=== PATIENT | female | born 1995 | race Caucasian/White ===

== ENCOUNTER 2019-06-02 13:06 | Emergency (ER) | payer BC, MEDICAID ==
--- NOTE | 2019-06-02 13:33 | EDM.PDOC ---
ED HPI GENERAL MEDICAL PROBLEM - General Chief Complaint: ENT Problem Stated Complaint: POSSIBLE STREP Time Seen by Provider: 06/02/19 13:20 Source of Information: Reports: Patient History Limitations: Reports: No Limitations - History of Present Illness INITIAL COMMENTS - FREE TEXT/NARRATIVE: This 23 yo female patient reports to the ED with a 2 day history of a sore throat, subjective fevers and generalized body aches. The patient reports she took Nyquil last night, but vomited after taking it. The patient has not been seen in the clinic. The patient confirmed that she is allergic to Penicillin. Onset Date: 05/31/19 Duration: Constant, Getting Worse Location: Reports: Neck Quality: Reports: Other Severity: Moderate Improves with: Reports: None Worsens with: Reports: None Context: Reports: Other Associated Symptoms: Reports: Other Treatments CREATIVE RECRUITER: Reports: Other Medication(s) Throat Pain Score (Numeric/FACES): 8 - Related Data Allergies Allergy/AdvReac Type Severity Reaction Status Date / Time Penicillins Allergy Cannot Verified 06/02/19 13:14 Remember Home Meds: Home Meds Levonorgestrel-Ethin Estradiol [Orsythia-28 Tablet] 1 tab PO DAILY 02/05/19 [ History] Past Medical History HEENT History: Reports: None Cardiovascular History: Reports: None Respiratory History: Reports: None Gastrointestinal History: Reports: None Genitourinary History: Reports: None 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 Musculoskeletal History: Reports: None Neurological History: Reports: None Psychiatric History: Reports: None Endocrine/Metabolic History: Reports: None Hematologic History: Reports: None Immunologic History: Reports: None Oncologic (Cancer) History: Reports: None Dermatologic History: Reports: None - Infectious Disease History Infectious Disease History: Reports: Chicken Pox - Past Surgical History Head Surgeries/Procedures: Reports: None Other Musculoskeletal Surgeries/Procedures:: new onset back pain with herniated disc Social & Family History - Family History Family Medical History: Noncontributory - Tobacco Use Smoking Status *Q: Current Every Day Smoker Years of Tobacco use: 10 Packs/Tins Daily: 0.5 - Caffeine Use Caffeine Use: Reports: Coffee Caffeine Use Comment: "occasionally" - Recreational Drug Use Recreational Drug Use: No - Living Situation & Occupation Living situation: Reports: with Family Occupation: Employed ED ROS ENT - Review of Systems Review Of Systems: ROS reveals no pertinent complaints other than HPI. ED EXAM, ENT - Physical Exam Exam: See Below Exam Limited By: No Limitations General Appearance: Alert, WD/WN, Moderate Distress Eye Exam: Bilateral Eye: EOMI, Normal Inspection, PERRL Ears: Normal External Exam, Normal Canal, Hearing Grossly Normal, Normal TMs Nose: Normal Inspection, Normal Mucousa, No Blood Mouth/Throat: Normal Inspection, Normal Gums, Normal Lips, Normal Teeth, Tonsillar Erythema, Tonsillar Exudates, Tonsillar Swelling Head: Atraumatic, Normocephalic Neck: Normal Inspection, Supple, Non-Tender, Full Range of Motion Respiratory/Chest: No Respiratory Distress, Lungs Clear, Normal Breath Sounds, No Accessory Muscle Use, Chest Non-Tender Cardiovascular: Normal Peripheral Pulses, Regular Rate, Rhythm, No Edema, No Gallop, No JVD, No Murmur, No Rub GI/Abdominal: Normal Bowel Sounds, Soft, Non-Tender, No Organomegaly, No Distention, No Abnormal Bruit, No Mass (Female) Exam: Deferred Rectal (Female) Exam: Deferred Back: Normal Inspection, Full Range of Motion Extremities: Normal Inspection, Normal Range of Motion, Non-Tender, No Pedal Edema, Normal Capillary Refill Neurological: Alert, Oriented, CN II-XII Intact, Normal Cognition, Normal Gait, Normal Reflexes, No Motor/Sensory Deficits Psychiatric: Normal Affect, Normal Mood Skin: Warm, Dry, Intact, Normal Color, No Rash Lymphatic: No Adenopathy Course - Vital Signs Last Recorded V/S: Last Vital Signs Temp 36.6 C 06/02/19 13:11 Pulse 96 06/02/19 13:11 Resp 18 06/02/19 13:11 BP 127/83 06/02/19 13:11 Pulse Ox 100 06/02/19 13:11 - Orders/Labs/Meds Orders: Active Orders 24 hr Category Date Time Status CULTURE STREP A CONFIRMATION [] Stat Lab 06/02/19 13:28 Results STREP SCRN A RAPID W CULT CONF [] Stat Lab 06/02/19 13:26 Ordered Departure - Departure Time of Disposition: 13:50 Disposition: Home, Self-Care 01 Condition: Fair Clinical Impression: URI (upper respiratory infection) Qualifiers: URI type: unspecified URI Qualified Code(s): J06.9 - Acute upper respiratory infection, unspecified - Discharge Information *PRESCRIPTION DRUG MONITORING PROGRAM REVIEWED*: Not Applicable *COPY OF PRESCRIPTION DRUG MONITORING REPORT IN PATIENT MITESH: Not Applicable Instructions: Upper Respiratory Infection, Adult, [id number] Forms: ED Department Discharge Care Plan Goals: The patient was advised of the examination and lab results during the visit. The patient was discharged with a script for Azithromycin (250 mg) #6 to take 2 by mouth on day 1 and 1 by mouth on days 2-5. The patient should be encouraged to increase her oral fluid intake over the next 48 hours. The patient may use [id number] medications for temporary symptom relief. If the patient has any additional symptoms or concerns, the patient should either return to the emergency department or follow-up with her primary care facility. - My Orders Last 24 Hours: My Active Orders 06/02/19 13:26 STREP SCRN A RAPID W CULT CONF [RM] Stat 06/02/19 13:28 CULTURE STREP A CONFIRMATION [RM] Stat - Assessment/Plan Last 24 Hours: My Active Orders 06/02/19 13:26 STREP SCRN A RAPID W CULT CONF [RM] Stat 06/02/19 13:28 CULTURE STREP A CONFIRMATION [RM] Stat
== END 2019-06-02 13:59 | disposition home or self-care (01) ==
LOC: DL.ED 13:06
DX: J06.9 Acute upper respiratory infection, unspecified (principal); F17.210 Nicotine dependence, cigarettes, uncomplicated; Z88.0 Allergy status to penicillin
CPT/HCPCS: 87081; 87430; 99283

== ENCOUNTER 2019-08-08 17:32 | Emergency (ER) | payer MEDICAID ==
[2019-08-08] MEDS ORDERED: Ibuprofen 800 MG Tab PO ONE (18:10)
[2019-08-08] MEDS ORDERED: Azithromycin 250 MG Tab PO ONE (18:10)
--- NOTE | 2019-08-08 18:12 | EDM.PDOC ---
Scribed by Cara Roberts 08/08/19 [id number] for Ray Hawkins MD ED HPI GENERAL MEDICAL PROBLEM - General Chief Complaint: ENT Problem Stated Complaint: SORE THROAT Time Seen by Provider: 08/08/19 17:39 Source of Information: Reports: Patient, RN, RN Notes Reviewed History Limitations: Reports: No Limitations - History of Present Illness INITIAL COMMENTS - FREE TEXT/NARRATIVE: Patient presents to ER stating she has had a cold for 2 weeks. The sore throat started last night. Admits to pain and itching deep in the ears. Also has noticed swollen lymph glands in the neck. Pt reports that she has been depressed , but has been in contact with a crisis counselor, has a safety plan and states that she is not suicidal. Onset: Gradual Duration: Getting Worse Location: Reports: Other (sore throat) Quality: Reports: Ache Severity: Mild Improves with: Reports: None Worsens with: Reports: None Associated Symptoms: Reports: No Other Symptoms Throat Pain Score (Numeric/FACES): 7 - Related Data Allergies Allergy/AdvReac Type Severity Reaction Status Date / Time Penicillins Allergy Cannot Verified 06/02/19 13:14 Remember Home Meds: Home Meds Levonorgestrel-Ethin Estradiol [Orsythia-28 Tablet] 1 tab PO DAILY 02/05/19 [ History] Past Medical History HEENT History: Reports: None Cardiovascular History: Reports: None Respiratory History: Reports: None Gastrointestinal History: Reports: None Genitourinary History: Reports: None 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 Musculoskeletal History: Reports: None Neurological History: Reports: None Psychiatric History: Reports: None Endocrine/Metabolic History: Reports: None Hematologic History: Reports: None Immunologic History: Reports: None Oncologic (Cancer) History: Reports: None Dermatologic History: Reports: None - Infectious Disease History Infectious Disease History: Reports: Chicken Pox - Past Surgical History Head Surgeries/Procedures: Reports: None Other Musculoskeletal Surgeries/Procedures:: new onset back pain with herniated disc Social & Family History - Family History Family Medical History: Noncontributory - Caffeine Use Caffeine Use: Reports: Coffee Caffeine Use Comment: "occasionally" - Living Situation & Occupation Living situation: Reports: with Family Occupation: Employed ED ROS ENT - Review of Systems Review Of Systems: Comprehensive ROS is negative, except as noted in HPI. ED EXAM, ENT - Physical Exam Exam: See Below Exam Limited By: No Limitations General Appearance: Alert, WD/WN, No Apparent Distress Eye Exam: Bilateral Eye: Normal Inspection Ears: Normal External Exam, Normal Canal, Hearing Grossly Normal, Normal TMs Nose: Normal Inspection, Normal Mucousa, No Blood Mouth/Throat: Normal Inspection, Normal Gums, Normal Lips, Normal Teeth, Pharyngeal Erythema. No: Tonsillar Exudates Head: Atraumatic, Normocephalic Neck: Normal Inspection, Full Range of Motion, Lymphadenopathy (L), Lymphadenopathy (R) Respiratory/Chest: No Respiratory Distress, Lungs Clear, No Accessory Muscle Use , Chest Non-Tender Cardiovascular: Regular Rate, Rhythm, Tachycardia GI/Abdominal: Normal Bowel Sounds, Soft, Non-Tender, No Organomegaly, No Distention, No Abnormal Bruit, No Mass Extremities: Normal Inspection Neurological: Alert, Oriented, Normal Cognition, No Motor/Sensory Deficits Psychiatric: Normal Affect, Depressed Mood Skin: Warm, Dry, Intact, Normal Color, No Rash Course - Vital Signs Last Recorded V/S: Last Vital Signs Temp 98.7 F 08/08/19 18:02 Pulse 124 H 08/08/19 18:02 Resp 20 08/08/19 18:02 BP 97/85 08/08/19 18:02 Pulse Ox 95 08/08/19 18:02 - Orders/Labs/Meds Orders: Active Orders 24 hr Category Date Time Status CULTURE STREP A CONFIRMATION [] Stat Lab 08/08/19 17:38 Results STREP SCRN A RAPID W CULT CONF [] Stat Lab 08/08/19 17:38 Results Azithromycin [Zithromax] Med 08/08/19 18:10 Once 500 mg PO ONETIME ONE Ibuprofen [Motrin] Med 08/08/19 18:10 Once 800 mg PO ONETIME ONE Labs: Rapid strep: Negative. Influenza A/B: Negative. Departure - Departure Time of Disposition: 18:11 Disposition: Home, Self-Care 01 Condition: Good Clinical Impression: Pharyngitis Qualifiers: Pharyngitis/tonsillitis etiology: other specified organisms Qualified Code(s): J02.8 - Acute pharyngitis due to other specified organisms - Discharge Information *PRESCRIPTION DRUG MONITORING PROGRAM REVIEWED*: No *COPY OF PRESCRIPTION DRUG MONITORING REPORT IN PATIENT MITESH: No Instructions: Pharyngitis Forms: ED Department Discharge Additional Instructions: Rx: Zithromax 250mg Frequent saltwater gargles until sore throat improves. Follow up in clinic if not improving in 3 days. Sepsis Event Note - Evaluation Sepsis Screening Result: No Definite Risk - Focused Exam Vital Signs: Vital Signs Temp Pulse Resp BP Pulse Ox 08/08/19 18:02 98.7 F 124 H 20 97/85 95 Date Exam was Performed: 08/08/19 Time Exam was Performed: 18:11 - My Orders Last 24 Hours: My Active Orders 08/08/19 17:38 CULTURE STREP A CONFIRMATION [RM] Stat STREP SCRN A RAPID W CULT CONF [RM] Stat 08/08/19 18:10 Azithromycin [Zithromax] 500 mg PO ONETIME ONE Ibuprofen [Motrin] 800 mg PO ONETIME ONE - Assessment/Plan Last 24 Hours: My Active Orders 08/08/19 17:38 CULTURE STREP A CONFIRMATION [RM] Stat STREP SCRN A RAPID W CULT CONF [RM] Stat 08/08/19 18:10 Azithromycin [Zithromax] 500 mg PO ONETIME ONE Ibuprofen [Motrin] 800 mg PO ONETIME ONE I have read and agree with the documentation that has been completed regarding this visit. By signing this record, I attest that the documentation was completed in my physical presence and is an accurate record of the encounter.
== END 2019-08-08 18:18 | disposition home or self-care (01) ==
LOC: DL.ED 17:32
DX: J02.8 Acute pharyngitis due to other specified organisms (principal); Z88.0 Allergy status to penicillin
CPT/HCPCS: 87081; 87430; 87804; 99283; A9270

== ENCOUNTER 2019-09-22 18:48 | Emergency (ER) | payer MEDICAID ==
[2019-09-22] MEDS ORDERED: Ondansetron 4 MG Tab.DIS PO ONE (18:49)
[2019-09-22] MEDS ORDERED: Sodium Chloride 0.9% 1,000 ML IV ONE (19:37)
[2019-09-22] MEDS ORDERED: Ondansetron 4 MG/2 ML SDV IVPUSH ONE (19:39)
[2019-09-22 20:20] LABS: ANION GAP 14.8; CHLORIDE,CL 106 mmol/L (101-111); SODIUM,NA 137 mmol/L (135-145)
[2019-09-22] MEDS ORDERED: Ondansetron 4 MG Tab.DIS ONE (22:09)
[2019-09-22] MEDS ORDERED: Ketorolac 30 MG/ML SDV IVPUSH ONE (22:13)
--- NOTE | 2019-09-22 22:22 | EDM.PDOC ---
ED HPI GENERAL MEDICAL PROBLEM - General Chief Complaint: General Stated Complaint: FLU,COUGH,FEVER, BODY ACHES, NAUSEAU Time Seen by Provider: 09/22/19 20:00 Source of Information: Reports: Patient, RN Notes Reviewed History Limitations: Reports: No Limitations - History of Present Illness INITIAL COMMENTS - FREE TEXT/NARRATIVE: ED with c/o nausea vomiting, headache, body aches. Cough x 1 week. Body aches started today. Did have flu shot. 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 Musculoskeletal History: Reports: None Neurological History: Reports: None Psychiatric History: Reports: None Endocrine/Metabolic History: Reports: None Hematologic History: Reports: None Immunologic History: Reports: None Oncologic (Cancer) History: Reports: None Dermatologic History: Reports: None - Infectious Disease History Infectious Disease History: Reports: Chicken Pox - Past Surgical History Head Surgeries/Procedures: Reports: None Female Surgical History: Reports: Section Other Musculoskeletal Surgeries/Procedures:: new onset back pain with herniated disc Social & Family History - Family History Family Medical History: Noncontributory - Tobacco Use Smoking Status *Q: Current Every Day Smoker Years of Tobacco use: 7 Packs/Tins Daily: 0.5 - Caffeine Use Caffeine Use: Reports: None Caffeine Use Comment: "occasionally" - Recreational Drug Use Recreational Drug Use: No - Living Situation & Occupation Living situation: Reports: with Family Occupation: Employed ED ROS GENERAL - Review of Systems Review Of Systems: Comprehensive ROS is negative, except as noted in HPI. ED EXAM, GENERAL - Physical Exam Exam: See Below Exam Limited By: No Limitations General Appearance: Alert, Mild Distress Eye Exam: Bilateral Eye: EOMI Ears: Normal External Exam, Normal TMs Nose: Normal Inspection, Normal Mucosa Throat/Mouth: Normal Inspection, Normal Lips Head: Atraumatic, Normocephalic Neck: Normal Inspection Respiratory/Chest: No Respiratory Distress, Lungs Clear, Normal Breath Sounds Cardiovascular: Normal Peripheral Pulses, Regular Rate, Rhythm, Tachycardia GI/Abdominal: Normal Bowel Sounds, Soft, No Distention. No: Guarding Extremities: Normal Range of Motion Neurological: Alert, Oriented, Normal Cognition Psychiatric: Normal Affect Skin Exam: Warm, Dry, Intact, Normal Color Course - Vital Signs Last Recorded V/S: Last Vital Signs Temp 98.5 F 09/22/19 19:27 Pulse 110 H 09/22/19 19:27 Resp 20 09/22/19 19:27 BP 118/57 L 09/22/19 19:27 Pulse Ox 98 09/22/19 19:27 - Orders/Labs/Meds Labs: Laboratory Tests 09/22/19 09/22/19 09/22/19 Range/Units 19:50 19:50 21:53 WBC 8.9 (5.0-10.0) 10^3/uL RBC 4.22 (4.2-5.4) 10^6/uL Hgb 13.5 (12.0-16.0) g/dL Hct 40.3 (37.0-47.0) % MCV 95.5 (80-100) fL MCH 32.0 (27.0-34.0) pg MCHC 33.5 (33.0-35.0) g/dL Plt Count 275 (150-450) 10^3/uL Neut % (Auto) 81.2 H (42.2-75.2) % Lymph % (Auto) 10.5 L (20.5-50.1) % Lamb % (Auto) 7.3 (2-8) % Eos % (Auto) 0.6 L (1.0-3.0) % Baso % (Auto) 0.4 (0.0-1.0) % Sodium 137 (135-145) mmol/L Potassium 3.8 (3.6-5.0) mmol/L Chloride 106 (101-111) mmol/L Carbon Dioxide 20.0 L (21.0-31.0) mmol/L Anion Gap 14.8 BUN 9 (7-18) mg/dL Creatinine 0.9 (0.6-1.3) mg/dL Est Cr Clr Drug Dosing 76.23 mL/min Estimated GFR (MDRD) > 60 BUN/Creatinine Ratio 10.00 Glucose 73 L (74-105) mg/dL Calcium 9.3 (8.4-10.2) mg/dl Total Bilirubin 0.8 (0.2-1.0) mg/dL AST 24 (10-42) IU/L ALT 14 (10-60) IU/L Alkaline Phosphatase 70 (42-121) IU/L Total Protein 7.6 (6.7-8.2) g/dl Albumin 4.4 (3.2-5.5) g/dl Globulin 3.2 Albumin/Globulin Ratio 1.38 Urine HCG, Qual Negative Meds: Medications Discontinued Medications Generic Name Dose Route Start Last Admin Trade Name Freq PRN Reason Stop Dose Admin Sodium Chloride 1,000 mls @ 999 mls/hr 09/22/19 19:37 09/22/19 19:54 Normal Saline IV 09/22/19 20:37 999 mls/hr .BOLUS ONE Administration Ketorolac Tromethamine 30 mg 09/22/19 22:13 09/22/19 22:18 Toradol IVPUSH 09/22/19 22:14 30 mg ONETIME ONE Administration Ondansetron HCl 4 mg 09/22/19 19:39 09/22/19 19:55 Zofran IVPUSH 09/22/19 19:40 4 mg ONETIME ONE Administration Ondansetron HCl Confirm 09/22/19 22:09 09/22/19 22:15 Zofran Odt Administered 09/22/19 22:10 Not Given Dose 8 mg .ROUTE .STK-MED ONE Departure - Departure Time of Disposition: 22:14 Disposition: Home, Self-Care 01 Condition: Good Clinical Impression: Influenza A - Discharge Information *PRESCRIPTION DRUG MONITORING PROGRAM REVIEWED*: No *COPY OF PRESCRIPTION DRUG MONITORING REPORT IN PATIENT MTIESH: No Instructions: Influenza, Adult, [id number] Forms: ED Department Discharge Additional Instructions: zofran 4mg ODT one every 4 hours as needed for nausea humidification alternate Tylenol 650mg end ibuprofen 600mg every 4 hours as needed avoid exposure to young old and poor immune systems follow up as needed Sepsis Event Note - Evaluation Sepsis Screening Result: No Definite Risk - Focused Exam Vital Signs: Vital Signs Temp Pulse Resp BP Pulse Ox 09/22/19 19:27 98.5 F 110 H 20 118/57 L 98 Date Exam was Performed: 09/23/19 Time Exam was Performed: 05:39
== END 2019-09-22 22:27 | disposition home or self-care (01) ==
LOC: DL.ED 18:48
DX: J10.1 Influenza due to other identified influenza virus with other respiratory manifestations (principal); F17.210 Nicotine dependence, cigarettes, uncomplicated; Z88.0 Allergy status to penicillin
CPT/HCPCS: 36415; 80053; 81025; 85025; 87804; 96361; 96374; 96375; 99284; A9270; J1885; J2405; J7030

== ENCOUNTER 2019-09-24 17:40 | Emergency (ER) | payer MEDICAID ==
[2019-09-24] MEDS ORDERED: Lidocaine 1% 30 ML SDV ONE (17:50)
[2019-09-24] MEDS ORDERED: Bacitracin Oint 1 GM U/D Packet TOP ONE (17:51)
--- NOTE | 2019-09-24 18:47 | EDM.PDOC ---
Scribed by Cara Roberts 09/24/19 [id number] for Ankush Chu NP ED HPI GENERAL MEDICAL PROBLEM - General Chief Complaint: General Stated Complaint: FLU Time Seen by Provider: 09/24/19 18:33 Source of Information: Reports: Patient, RN, RN Notes Reviewed History Limitations: Reports: No Limitations - History of Present Illness INITIAL COMMENTS - FREE TEXT/NARRATIVE: A 24-year-old female who presents to the ED with complaint of body aches, nausea , one episode of vomiting, 3 episodes of diarrhea x1 day. Patient was diagnosed with influenza A 2 days ago. She states she is pushing fluids and resting, but she still feels like she has been hit by a truck. She states she is coughing up green phlegm. Reports being warm at home but did not measure her temperature. She is eating well. Denies any chills, shortness of breath, chest pain, palpitations at this time. She is a current smoker but denies history of asthma. No modifying or alleviating factors. Severity: Mild Improves with: Reports: None Worsens with: Reports: None Associated Symptoms: Reports: No Other Symptoms Generalized Pain Score (Numeric/FACES): 7 - Related Data Allergies Allergy/AdvReac Type Severity Reaction Status Date / Time Penicillins Allergy Cannot Verified 09/24/19 17:47 Remember Home Meds: Home Meds Levonorgestrel-Ethin Estradiol [Orsythia-28 Tablet] 1 tab PO DAILY 02/05/19 [ History] Past Medical History HEENT History: Reports: None Cardiovascular History: Reports: None Respiratory History: Reports: None Gastrointestinal History: Reports: None Genitourinary History: Reports: None 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 Musculoskeletal History: Reports: None Neurological History: Reports: None Psychiatric History: Reports: None Endocrine/Metabolic History: Reports: None Hematologic History: Reports: None Immunologic History: Reports: None Oncologic (Cancer) History: Reports: None Dermatologic History: Reports: None - Infectious Disease History Infectious Disease History: Reports: Chicken Pox - Past Surgical History Head Surgeries/Procedures: Reports: None Female Surgical History: Reports: Section Other Musculoskeletal Surgeries/Procedures:: new onset back pain with herniated disc Social & Family History - Family History Family Medical History: Noncontributory - Tobacco Use Smoking Status *Q: Current Every Day Smoker Years of Tobacco use: 5 Packs/Tins Daily: 0.5 - Caffeine Use Caffeine Use: Reports: None Caffeine Use Comment: "occasionally" - Recreational Drug Use Recreational Drug Use: No - Living Situation & Occupation Living situation: Reports: with Family Occupation: Employed ED ROS GENERAL - Review of Systems Review Of Systems: Comprehensive ROS is negative, except as noted in HPI. ED EXAM, GENERAL - Physical Exam Exam: See Below Exam Limited By: No Limitations General Appearance: Alert, WD/WN, No Apparent Distress Eye Exam: Bilateral Eye: Normal Inspection Ears: Normal External Exam, Normal Canal, Hearing Grossly Normal, Normal TMs Nose: Normal Inspection, Normal Mucosa, No Blood Throat/Mouth: Normal Inspection, Normal Lips, Normal Teeth, Normal Gums, Normal Oropharynx, Normal Voice, No Airway Compromise Head: Atraumatic, Normocephalic Neck: Normal Inspection, Supple, Non-Tender, Full Range of Motion Respiratory/Chest: No Respiratory Distress, Lungs Clear, Normal Breath Sounds, No Accessory Muscle Use, Chest Non-Tender Cardiovascular: Normal Peripheral Pulses, Regular Rate, Rhythm, No Edema, No Gallop, No JVD, No Murmur, No Rub GI/Abdominal: Normal Bowel Sounds, Soft, Non-Tender, No Organomegaly, No Distention, No Abnormal Bruit, No Mass (Female) Exam: Deferred Rectal (Female) Exam: Deferred Back Exam: Normal Inspection Extremities: Normal Inspection, Normal Range of Motion, Non-Tender, Normal Capillary Refill, No Pedal Edema Neurological: Alert, Oriented, Normal Cognition Psychiatric: Normal Affect, Normal Mood Skin Exam: Warm, Dry, Intact, Normal Color, No Rash Lymphatic: No Adenopathy Course - Vital Signs Last Recorded V/S: Last Vital Signs Temp 96.8 F L 09/24/19 18:02 Pulse 101 H 09/24/19 18:02 Resp 20 09/24/19 18:02 BP 116/74 09/24/19 18:02 Pulse Ox 99 09/24/19 18:02 - Re-Assessments/Exams Free Text/Narrative Re-Assessment/Exam: Reviewed exam findings with the patient. Encouraged her to push fluids. Continue taking Zofran and rest. Follow up with PCP in clinic. Ibuprofen and Tylenol for discomfort. Departure - Departure Time of Disposition: 18:44 Disposition: Home, Self-Care 01 Condition: Good Clinical Impression: Influenza A, Gastroenteritis - Discharge Information Instructions: Influenza, Adult, [id number], Viral Gastroenteritis, Adult, [id number] Forms: ED Department Discharge Additional Instructions: Encouraged her to push fluids. Continue taking Zofran and rest. Follow up with PCP in clinic. Ibuprofen and Tylenol for discomfort. Sepsis Event Note - Evaluation Sepsis Screening Result: No Definite Risk - Focused Exam Vital Signs: Vital Signs Temp Pulse Resp BP Pulse Ox 09/24/19 18:02 96.8 F L 101 H 20 116/74 99 Date Exam was Performed: 09/24/19 Time Exam was Performed: 18:47 I have read and agree with the documentation that has been completed regarding this visit. By signing this record, I attest that the documentation was completed in my physical presence and is an accurate record of the encounter.
== END 2019-09-24 18:51 | disposition home or self-care (01) ==
LOC: DL.ED 17:40
DX: J10.2 Influenza due to other identified influenza virus with gastrointestinal manifestations (principal); F17.210 Nicotine dependence, cigarettes, uncomplicated; Z88.0 Allergy status to penicillin
CPT/HCPCS: 99283

== ENCOUNTER 2019-11-20 12:56 | Emergency (ER) | payer MEDICAID ==
[2019-11-20] MEDS ORDERED: Sodium Chloride 0.9% 1,000 ML IV ONE (13:07)
[2019-11-20] MEDS ORDERED: Ondansetron 4 MG/2 ML SDV IVPUSH ONE (13:07)
--- NOTE | 2019-11-20 13:34 | EDM.PDOC ---
ED HPI GENERAL MEDICAL PROBLEM - General Chief Complaint: Gastrointestinal Problem Stated Complaint: throwing up/abdominal pain Time Seen by Provider: 11/20/19 13:25 Source of Information: Reports: Patient History Limitations: Reports: No Limitations - History of Present Illness INITIAL COMMENTS - FREE TEXT/NARRATIVE: This 24 yo female patient reports to the ED with diffuse abdominal pain, nausea/ vomiting and diarrhea. The patient reports her father was feeling the same way. The patient initially thought she may have gotten food poisoning from some sausage she ate on Thursday. The patient reports her symptoms started this morning. The patient has had a , but no other abdominal surgeries. Onset: Today Duration: Constant Location: Reports: Abdomen Quality: Reports: Ache, Sharp, Stabbing Severity: Moderate Improves with: Reports: None Worsens with: Reports: None Context: Reports: Other Associated Symptoms: Reports: No Other Symptoms Abdomen Pain Score (Numeric/FACES): 7 - Related Data Allergies Allergy/AdvReac Type Severity Reaction Status Date / Time Penicillins Allergy Cannot Verified 11/20/19 13:03 Remember Home Meds: Home Meds Levonorgestrel-Ethin Estradiol [Orsythia-28 Tablet] 1 tab PO DAILY 02/05/19 [ History] Past Medical History HEENT History: Reports: None Cardiovascular History: Reports: None Respiratory History: Reports: None Gastrointestinal History: Reports: None Genitourinary History: Reports: None 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 Musculoskeletal History: Reports: None Neurological History: Reports: None Psychiatric History: Reports: Anxiety Endocrine/Metabolic History: Reports: None Hematologic History: Reports: None Immunologic History: Reports: None Oncologic (Cancer) History: Reports: None Dermatologic History: Reports: None - Infectious Disease History Infectious Disease History: Reports: Chicken Pox - Past Surgical History Head Surgeries/Procedures: Reports: None Female Surgical History: Reports: Section Other Musculoskeletal Surgeries/Procedures:: new onset back pain with herniated disc Social & Family History - Family History Family Medical History: Noncontributory - Tobacco Use Smoking Status *Q: Current Every Day Smoker Years of Tobacco use: 7 Packs/Tins Daily: 0.5 - Caffeine Use Caffeine Use: Reports: Soda Caffeine Use Comment: "occasionally" - Recreational Drug Use Recreational Drug Use: No - Living Situation & Occupation Living situation: Reports: with Family Occupation: Employed ED ROS GENERAL - Review of Systems Review Of Systems: Comprehensive ROS is negative, except as noted in HPI. ED EXAM, GI/ABD - Physical Exam Exam: See Below Exam Limited By: No Limitations General Appearance: Alert, WD/WN, No Apparent Distress Eyes: Bilateral: Normal Appearance, EOMI Ears: Normal External Exam, Normal Canal, Hearing Grossly Normal, Normal TMs Nose: Normal Inspection, Normal Mucosa, No Blood Throat/Mouth: Normal Inspection, Normal Lips, Normal Teeth, Normal Gums, Normal Oropharynx, Normal Voice, No Airway Compromise Head: Atraumatic, Normocephalic Neck: Normal Inspection Respiratory/Chest: No Respiratory Distress, Lungs Clear, Normal Breath Sounds, No Accessory Muscle Use, Chest Non-Tender Cardiovascular: Normal Peripheral Pulses GI/Abdominal Exam: Normal Bowel Sounds, No Organomegaly, No Distention, No Abnormal Bruit, No Mass, Pelvis Stable, Tender (diffuse abdominal tenderness) (Female) Exam: Deferred Rectal (Female) Exam: Deferred Extremities: Normal Inspection, Normal Range of Motion, Non-Tender, Normal Capillary Refill, No Pedal Edema Neurological: Alert, Oriented, CN II-XII Intact, Normal Cognition, Normal Gait, Normal Reflexes, No Motor/Sensory Deficits Psychiatric: Normal Affect, Normal Mood Skin Exam: Warm, Dry, Intact, Normal Color, No Rash Lymphatic: No Adenopathy Course - Vital Signs Last Recorded V/S: Last Vital Signs Temp 36.7 C 11/20/19 15:06 Pulse 98 11/20/19 15:06 Resp 16 11/20/19 15:06 BP 118/85 11/20/19 15:06 Pulse Ox 100 11/20/19 15:06 - Orders/Labs/Meds Orders: Active Orders 24 hr Category Date Time Status Abdomen Pelvis w Cont [CT] Urgent Exams 11/20/19 14:13 Ordered CULTURE URINE [RM] Stat Lab 11/20/19 13:55 Received Labs: Laboratory Tests 11/20/19 11/20/19 11/20/19 Range/Units 13:25 13:25 13:55 WBC 11.7 H (5.0-10.0) 10^3/uL RBC 4.92 (4.2-5.4) 10^6/uL Hgb 15.4 D (12.0-16.0) g/dL Hct 46.6 (37.0-47.0) % MCV 94.7 (80-100) fL MCH 31.3 (27.0-34.0) pg MCHC 33.0 (33.0-35.0) g/dL Plt Count 246 (150-450) 10^3/uL Neut % (Auto) 83.7 H (42.2-75.2) % Lymph % (Auto) 10.2 L (20.5-50.1) % [place] % (Auto) 5.1 (2-8) % Eos % (Auto) 0.9 L (1.0-3.0) % Baso % (Auto) 0.1 (0.0-1.0) % Sodium 144 (136-145) mmol/L Potassium 3.7 (3.5-5.1) mmol/L Chloride 106 (98-107) mmol/L Carbon Dioxide 25 (21-32) mmol/L Anion Gap 16.7 H (7-13) mEq/L BUN 12 (7-18) mg/dL Creatinine 0.94 (0.55-1.02) mg/dL Est Cr Clr Drug Dosing 72.99 mL/min Estimated GFR (MDRD) > 60 BUN/Creatinine Ratio 12.8 (No establ ref range) Glucose 83 (74-99) mg/dL Calcium 8.7 (8.5-10.1) mg/dL Total Bilirubin 0.6 (0.2-1.0) mg/dL AST 15 (15-37) U/L ALT 24 (14-59) U/L Alkaline Phosphatase 79 (46-116) U/L Total Protein 7.2 (6.4-8.2) g/dL Albumin 4.2 (3.4-5.0) g/dL Globulin 3.0 Albumin/Globulin Ratio 1.4 Urine Color Yellow (YELLOW) Urine Appearance Slightly cloudy (CLEAR) Urine pH 6.0 (5.0-9.0) Ur Specific [place] >= 1.030 (1.005-1.030) Urine Protein Negative (NEGATIVE) Urine Glucose (UA) Negative (NEGATIVE) Urine Ketones Negative (NEGATIVE) Urine Occult Blood Negative (NEGATIVE) Urine Nitrite Negative (NEGATIVE) Urine Bilirubin Negative (NEGATIVE) Urine Urobilinogen 0.2 (0.2-1.0) mg/dL Ur Leukocyte Esterase Trace H (NEGATIVE) Urine RBC 0-5 /HPF Urine WBC 5-10 H (0-5/HPF) /HPF Ur Epithelial Cells Moderate H (NOT SEEN) /HPF Urine Bacteria Few (0-FEW/HPF) /HPF Urine HCG, Qual 11/20/19 Range/Units 13:55 WBC (5.0-10.0) 10^3/uL RBC (4.2-5.4) 10^6/uL Hgb (12.0-16.0) g/dL Hct (37.0-47.0) % MCV (80-100) fL MCH (27.0-34.0) pg MCHC (33.0-35.0) g/dL Plt Count (150-450) 10^3/uL Neut % (Auto) (42.2-75.2) % Lymph % (Auto) (20.5-50.1) % [place] % (Auto) (2-8) % Eos % (Auto) (1.0-3.0) % Baso % (Auto) (0.0-1.0) % Sodium (136-145) mmol/L Potassium (3.5-5.1) mmol/L Chloride (98-107) mmol/L Carbon Dioxide (21-32) mmol/L Anion Gap (7-13) mEq/L BUN (7-18) mg/dL Creatinine (0.55-1.02) mg/dL Est Cr Clr Drug Dosing mL/min Estimated GFR (MDRD) BUN/Creatinine Ratio (No establ ref range) Glucose (74-99) mg/dL Calcium (8.5-10.1) mg/dL Total Bilirubin (0.2-1.0) mg/dL AST (15-37) U/L ALT (14-59) U/L Alkaline Phosphatase (46-116) U/L Total Protein (6.4-8.2) g/dL Albumin (3.4-5.0) g/dL Globulin Albumin/Globulin Ratio Urine Color (YELLOW) Urine Appearance (CLEAR) Urine pH (5.0-9.0) Ur Specific [place] (1.005-1.030) Urine Protein (NEGATIVE) Urine Glucose (UA) (NEGATIVE) Urine Ketones (NEGATIVE) Urine Occult Blood (NEGATIVE) Urine Nitrite (NEGATIVE) Urine Bilirubin (NEGATIVE) Urine Urobilinogen (0.2-1.0) mg/dL Ur Leukocyte Esterase (NEGATIVE) Urine RBC /HPF Urine WBC (0-5/HPF) /HPF Ur Epithelial Cells (NOT SEEN) /HPF Urine Bacteria (0-FEW/HPF) /HPF Urine HCG, Qual Negative Meds: Medications Discontinued Medications Generic Name Dose Route Start Last Admin Trade Name Mosesq PRN Reason Stop Dose Admin Sodium Chloride 1,000 mls @ 999 mls/hr 11/20/19 13:07 11/20/19 13:20 Normal Saline IV 11/20/19 14:07 999 mls/hr .BOLUS ONE Administration Iopamidol 100 ml 11/20/19 14:13 11/20/19 14:21 Isovue-300 (61%) IVPUSH 11/20/19 14:14 100 ml ONETIME ONE Administration Metoclopramide HCl 10 mg 11/20/19 14:58 11/20/19 15:06 Reglan IVPUSH 11/20/19 14:59 10 mg ONETIME ONE Administration Morphine Sulfate 2 mg 11/20/19 14:16 11/20/19 14:23 Morphine IVPUSH 11/20/19 14:17 2 mg ONETIME ONE Administration Ondansetron HCl 4 mg 11/20/19 13:07 11/20/19 13:19 Zofran IVPUSH 11/20/19 13:08 4 mg ONETIME ONE Administration Departure - Departure Time of Disposition: 15:15 Disposition: Home, Self-Care 01 Condition: Fair Clinical Impression: Gastroenteritis - Discharge Information *PRESCRIPTION DRUG MONITORING PROGRAM REVIEWED*: Not Applicable *COPY OF PRESCRIPTION DRUG MONITORING REPORT IN PATIENT MITESH: Not Applicable Instructions: Viral Gastroenteritis, Adult, [id number] Forms: ED Department Discharge Care Plan Goals: The patient was advised of the examination, lab and CT results during the visit. The patient was given an IV dose of Zofran (temporary nausea relief), an IV dose of Reglan (nausea relief) and a liter of IV fluids while in the ED. The patient was discharged with a script for Reglan (10 mg) #20 to take 1 by mouth 4 times per day as needed for nausea. The patient was encouraged to stick to a BRAT diet (bananas, rice, applesauce and toast) with small frequent sips of fluid. If the patient has any additional symptoms or concerns, the patient should either return to the emergency department or visit her primary care facility. Sepsis Event Note - Evaluation Sepsis Screening Result: No Definite Risk - Focused Exam Vital Signs: Vital Signs Temp Pulse Resp BP Pulse Ox 11/20/19 15:06 36.7 C 98 16 118/85 100 11/20/19 13:03 36.4 C 104 H 16 122/77 100 Date Exam was Performed: 11/20/19 Time Exam was Performed: 15:15 - My Orders Last 24 Hours: My Active Orders 11/20/19 13:55 CULTURE URINE [RM] Stat 11/20/19 14:13 Abdomen Pelvis w Cont [CT] Urgent - Assessment/Plan Last 24 Hours: My Active Orders 11/20/19 13:55 CULTURE URINE [RM] Stat 11/20/19 14:13 Abdomen Pelvis w Cont [CT] Urgent
[2019-11-20 13:51] LABS: ANION GAP 16.7 mEq/L (7-13); CHLORIDE,CL 106 mmol/L (98-107); SODIUM,NA 144 mmol/L (136-145)
[2019-11-20] MEDS ORDERED: Iopamidol 612 MG/ML 100 ML Bottle IVPUSH ONE (14:13)
[2019-11-20] MEDS ORDERED: Morphine 2 MG/ML SYRINGE IVPUSH ONE (14:16)
[2019-11-20] MEDS ORDERED: Metoclopramide 10 MG/2 ML SDV IVPUSH ONE (14:58)
== END 2019-11-20 15:22 | disposition home or self-care (01) ==
LOC: DL.ED 12:56
DX: K52.9 Noninfective gastroenteritis and colitis, unspecified (principal); F17.210 Nicotine dependence, cigarettes, uncomplicated; Z88.0 Allergy status to penicillin
CPT/HCPCS: 36415; 74177; 80053; 81001; 81025; 85025; 87086; 96361; 96374; 96375; 99284; J2270; J2405; J2765; J7030; Q9967; 87088; 87186

== ENCOUNTER 2020-03-19 04:15 | Emergency (ER) | payer MEDICAID ==
[2020-03-19] MEDS ORDERED: Iopamidol 612 MG/ML 100 ML Bottle IVPUSH ONE (04:18)
[2020-03-19 04:46] LABS: ANION GAP 19.5 mEq/L (7-13); CHLORIDE,CL 106 mmol/L (98-107); SODIUM,NA 142 mmol/L (136-145)
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
== END 2020-03-19 05:15 | disposition home or self-care (01) ==
LOC: DL.ED 04:15
DX: S01.01XA Laceration without foreign body of scalp, initial encounter (principal); Y90.8 Blood alcohol level of 240 mg/100 ml or more; F10.120 Alcohol abuse with intoxication, uncomplicated; X58.XXXA Exposure to other specified factors, initial encounter; Z88.0 Allergy status to penicillin
CPT/HCPCS: 12002; 36415; 70450; 71260; 72125; 74177; 80053; 80307; 85025; 99283; 99284; Q9967

== ENCOUNTER 2020-03-19 15:48 | Emergency (ER) | payer MEDICAID ==
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
== END 2020-03-19 16:45 | disposition home or self-care (01) ==
LOC: DL.ED 15:48
DX: S01.01XA Laceration without foreign body of scalp, initial encounter (principal); S40.012A Contusion of left shoulder, initial encounter; S60.221A Contusion of right hand, initial encounter; S50.01XA Contusion of right elbow, initial encounter; Z88.0 Allergy status to penicillin; V49.9XXA Car occupant (driver) (passenger) injured in unspecified traffic accident, initial encounter
CPT/HCPCS: 73130-RT; 99283; 99283-25

== ENCOUNTER 2021-02-22 12:41 | Emergency (ER) | payer MEDICAID | END 2021-02-22 15:30 | disposition left against medical advice (07) | LOC: DL.ED 12:41 | DX: Z53.21 Procedure and treatment not carried out due to patient leaving prior to being seen by health care provider (principal) ==

== ENCOUNTER 2021-05-29 21:23 | Emergency (ER) | payer MEDICAID ==
[2021-05-29] MEDS ORDERED: Clindamycin HCl 150 MG Cap PO ONE (23:10)
[2021-05-29] MEDS ORDERED: Ibuprofen 600 MG Tab PO ONE (23:10)
--- NOTE | 2021-05-29 23:15 | EDM.PDOC ---
ED HPI GENERAL MEDICAL PROBLEM - General Chief Complaint: Skin Complaint Stated Complaint: LUMP BETWEEN LOWER AREA & BUTT Time Seen by Provider: 05/29/21 22:00 Source of Information: Reports: Patient History Limitations: Reports: No Limitations - History of Present Illness INITIAL COMMENTS - FREE TEXT/NARRATIVE: ED with 3 day hx lump in "privates" tender. 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 No fever or chills. No nausea or vomiting. 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 Musculoskeletal History: Reports: None Neurological History: Reports: None Psychiatric History: Reports: Anxiety Endocrine/Metabolic History: Reports: None Hematologic History: Reports: None Immunologic History: Reports: None Oncologic (Cancer) History: Reports: None Dermatologic History: Reports: Cellulitis - Infectious Disease History Infectious Disease History: Reports: Chicken Pox - Past Surgical History Head Surgeries/Procedures: Reports: None Female Surgical History: Reports: Section Other Musculoskeletal Surgeries/Procedures:: new onset back pain with herniated disc Social & Family History - Family History Family Medical History: No Pertinent Family History - Tobacco Use Tobacco Use Status *Q: Current Every Day Tobacco User Years of Tobacco use: 10 Packs/Tins Daily: 0.2 - Caffeine Use Caffeine Use: Reports: Soda Caffeine Use Comment: "occasionally" - Recreational Drug Use Recreational Drug Use: No - Living Situation & Occupation Living situation: Reports: with Family Occupation: Employed ED ROS GENERAL - Review of Systems Review Of Systems: Comprehensive ROS is negative, except as noted in HPI. ED EXAM, SKIN/RASH Exam: See Below Exam Limited By: No Limitations General Appearance: Alert, Mild Distress Eye Exam: Bilateral Eye: EOMI Ears: Normal External Exam, Hearing Grossly Normal Throat/Mouth: Normal Voice Head: Atraumatic, Normocephalic Neck: Normal Inspection Respiratory/Chest: No Respiratory Distress, Lungs Clear, Normal Breath Sounds Cardiovascular: Regular Rate, Rhythm Extremities: Normal Inspection Neurological: Alert, Oriented Psychiatric: Normal Affect, Normal Mood Skin: Warm, Dry, Intact, Erythema (Firm indurated abscess right lower labia tender no drainage. ) Location, Skin: Genital Associated features: Warmth, Tenderness, Swelling, Induration Course - Vital Signs Last Recorded V/S: Last Vital Signs Temp 98.1 F 05/29/21 21:49 Pulse 136 H 05/29/21 21:49 Resp 16 05/29/21 21:49 BP 139/98 H 05/29/21 21:49 Pulse Ox 99 05/29/21 21:49 - Orders/Labs/Meds Labs: Laboratory Tests 05/29/21 Range/Units 21:42 Urine Color Yellow (YELLOW) Urine Appearance Slightly cloudy (CLEAR) Urine pH 7.5 (5.0-9.0) Ur Specific [place] 1.025 (1.005-1.030) Urine Protein 30 H (NEGATIVE) Urine Glucose (UA) Negative (NEGATIVE) Urine Ketones Negative (NEGATIVE) Urine Occult Blood Negative (NEGATIVE) Urine Nitrite Negative (NEGATIVE) Urine Bilirubin Negative (NEGATIVE) Urine Urobilinogen 0.2 (0.2-1.0) mg/dL Ur Leukocyte Esterase Small H (NEGATIVE) Urine RBC 0-5 (0-5) /HPF Urine WBC 75-100 H (0-5/HPF) /HPF Ur Epithelial Cells Many H (NOT SEEN) /HPF Amorphous Sediment Few (NOT SEEN) /HPF Urine Bacteria Many H (0-FEW/HPF) /HPF Urine Mucus Moderate H (NOT SEEN) /LPF Meds: Medications Discontinued Medications Generic Name Dose Route Start Last Admin Trade Name Mosesq PRN Reason Stop Dose Admin Clindamycin HCl 150 mg 05/29/21 23:10 05/29/21 23:19 Clindamycin Hcl 150 Mg Cap PO 05/29/21 23:11 150 mg ONETIME ONE Administration Ibuprofen 600 mg 05/29/21 23:10 05/29/21 23:19 Ibuprofen 600 Mg Tab PO 05/29/21 23:11 600 mg ONETIME ONE Administration Departure - Departure Time of Disposition: 23:12 Disposition: Home, Self-Care 01 Condition: Good Clinical Impression: Abscess - Discharge Information *PRESCRIPTION DRUG MONITORING PROGRAM REVIEWED*: No *COPY OF PRESCRIPTION DRUG MONITORING REPORT IN PATIENT MITESH: No Instructions: Skin Abscess, [id number] Referrals: Irving Laureano MD [Primary Care Provider] - Forms: ED Department Discharge Additional Instructions: clindamycin 300mg three times daily alternate tylenol 500mg and ibuprofen 600mg every 4 hours as needed for pain clinic recheck Thursday sitz baths- warm water soak 3- times daily avoid constrictive clothing to area Sepsis Event Note (ED) - Evaluation Sepsis Screening Result: No Definite Risk
== END 2021-05-29 23:20 | disposition home or self-care (01) ==
LOC: DL.ED 21:23
DX: N76.4 Abscess of vulva (principal); Z88.0 Allergy status to penicillin; Z72.0 Tobacco use
CPT/HCPCS: 81001; 87086; 87088; 87186; 99283; A9270-GY

== ENCOUNTER 2021-06-23 13:46 | Emergency (ER) | payer MEDICAID | END 2021-06-23 16:50 | disposition left against medical advice (07) | LOC: DL.ED 13:46 | DX: Z53.21 Procedure and treatment not carried out due to patient leaving prior to being seen by health care provider (principal) ==

== ENCOUNTER 2021-12-26 16:01 | Emergency (ER) | payer MEDICAID ==
[2021-12-26] MEDS ORDERED: Ondansetron 4 MG/2 ML SDV IVPUSH ONE ×2 (16:34→17:59)
[2021-12-26] MEDS ORDERED: Sodium Chloride 0.9% 1,000 ML IV ONE ×2 (16:34→17:59)
[2021-12-26 16:42] LABS: AMPHETAMINES,URINE NEGATIVE (NEGATIVE); BARBITURATES,URINE NEGATIVE (NEGATIVE); BENZODIAZEPINE,URINE NEGATIVE (NEGATIVE); MDMA (ECSTASY), URINE NEGATIVE (NEGATIVE); METHADONE,URINE NEGATIVE (NEGATIVE); METHAMPHETAMINES,URINE NEGATIVE (NEGATIVE); OPIATES,URINE NEGATIVE (NEGATIVE); OXYCODONE,URINE NEGATIVE (NEGATIVE); PHENCYCLIDINE,URINE NEGATIVE (NEGATIVE); TCA,URINE NEGATIVE (NEGATIVE)
[2021-12-26] MEDS ORDERED: Ondansetron 4 MG/2 ML SDV ONE (16:47)
[2021-12-26 16:56] LABS: ANION GAP 15.9 mEq/L (7-13); CHLORIDE,CL 100 mmol/L (98-107); SODIUM,NA 138 mmol/L (136-145)
[2021-12-26 17:45] LABS: CORONAVIRUS COVID-19 NAA NEGATIVE (NEGATIVE)
== END 2021-12-26 19:46 | disposition home or self-care (01) ==
LOC: DL.ED 16:01
DX: K52.9 Noninfective gastroenteritis and colitis, unspecified (principal); F17.210 Nicotine dependence, cigarettes, uncomplicated; Z88.0 Allergy status to penicillin; Z79.899 Other long term (current) drug therapy; Z20.822 Contact with and (suspected) exposure to COVID-19
CPT/HCPCS: 0240U; 36415; 80053; 80305; 81001; 81025; 82150; 83605; 83690; 85025; 87040; 96361; 96374; 96376; 99284; J2405; J7030

== ENCOUNTER 2022-05-15 18:30 | Emergency (ER) | payer MEDICAID | END 2022-05-15 18:50 | disposition left against medical advice (07) | LOC: DL.ED 18:30 | DX: Z53.21 Procedure and treatment not carried out due to patient leaving prior to being seen by health care provider (principal) ==

== ENCOUNTER 2024-06-19 09:36 | Emergency (ER) | payer MEDICAID, OTHER ==
[2024-06-19 10:09] LABS: APPEARANCE,URINE SLIGHTLY CLOUDY (CLEAR); BILIRUBIN,URINE NEGATIVE (NEGATIVE); COLOR,URINE YELLOW (YELLOW); GLUCOSE,URINE NEGATIVE (NEGATIVE); KETONES,URINE NEGATIVE (NEGATIVE); LEUKOCYTE ESTERASE,URINE MODERATE (NEGATIVE); NITRITE,URINE NEGATIVE (NEGATIVE); OCCULT BLOOD,URINE NEGATIVE (NEGATIVE); PH,URINE 7.5 (5.0-9.0); PROTEIN,URINE TRACE (NEGATIVE); UROBILINOGEN,URINE 0.2 mg/dL (0.2-1.0)
[2024-06-19 10:21] LABS: BACTERIA,URINE MODERATE /HPF (0-FEW/HPF); EPITHELIAL CELLS,URINE FEW /HPF (NOT SEEN); RBC,URINE 0-5 /HPF (0-5); TRICHOMONAS,URINE PRESENT /HPF (NOT SEEN); WBC,URINE 30-40 /HPF (0-5/HPF)
[2024-06-19] MEDS: Azithromycin 250 MG Tab PO ONE (11:23)
[2024-06-19] MEDS: metroNIDAZOLE 250 MG Tab PO ONE (11:24)
[2024-06-19] MEDS: cefTRIAXone 500 MG Vial IM ONE (11:36)
[2024-06-19 11:44] LABS: BASOPHILS PERCENT AUTO 0.3 % (0.0-1.0); EOSINOPHILS PERCENT AUTO 0.7 % (1.0-3.0); HEMATOCRIT 40.2 % (37.0-47.0); HEMOGLOBIN 13.4 g/dL (12.0-16.0); LYMPHOCYTES PERCENT AUTO 19.6 % (20.5-50.1); MEAN CORPUSCULAR HEMOGLOBIN 30.5 pg (27.0-34.0); MEAN CORPUSCULAR HGB CONC 33.3 g/dL (33.0-35.0); MEAN CORPUSCULAR VOLUME 91.4 fL (80-100); MONOCYTES PERCENT AUTO 4.7 % (2-8); NEUTROPHILS PERCENT AUTO 74.7 % (42.2-75.2); PLATELET COUNT,PLT 349 10^3/uL (150-450); WHITE BLOOD CELL COUNT,WBC 15.8 10^3/uL (5.0-10.0)
[2024-06-19] MEDS: Lactated Ringers 1,000 ML IV ONE (11:51)
[2024-06-19 12:02] LABS: A/G RATIO 0.9; ALBUMIN 3.4 g/dL (3.4-5.0); ANION GAP 12.2 mEq/L (7-13); BILIRUBIN TOTAL 0.3 mg/dL (0.2-1.0); CALCIUM 9.1 mg/dL (8.5-10.1); CREATININE 0.83 mg/dL (0.55-1.02); EST CRCL DRUG DOSING (CG) 79.81 mL/min; POTASSIUM,K 4.2 mmol/L (3.5-5.1); PROTEIN TOTAL,TP 7.1 g/dL (6.4-8.2)
[2024-06-19] MEDS: Take Home: Doxycycline 100 MG Cap, 4 Cap Pack PO ONE (15:03)
[2024-06-19] MEDS: Doxycycline Monohydrate 100 MG Cap PO ONE (15:03)
[2024-06-19] MEDS: Take Home: metroNIDAZOLE 250 MG Tab, 8 Tab Pack PO ONE (15:06)
[2024-06-22 12:47] LABS: C.TRACHOMATIS BY TMA Negative (Negative); M GENITALIUM Negative (Negative); M GENITALIUM SOURCE Urine; N.GONORRHOEAE BY TMA Negative (Negative); SOURCE Urine
== END 2024-06-19 15:22 | disposition home or self-care (01) ==
LOC: DL.ED 09:36
DX: A59.9 Trichomoniasis, unspecified (principal); Z79.899 Other long term (current) drug therapy; Z88.0 Allergy status to penicillin
CPT/HCPCS: 36415; 76856; 80053; 81001; 81025; 83605; 85025; 87081; 87086; 87428-QW; 87430; 87491; 87563; 87591; 96372; 99283; 99284; A9270-GY; J0696; J7120